=== PATIENT | male | born 1995 | race Caucasian/White ===

== ENCOUNTER 2019-12-28 21:53 | Emergency (ER) | payer BC ==
[~2019-12-28] VITALS: Ht 172.7 cm; Wt 97.5 kg
[2019-12-28 21:54] VITALS: Ht 172.7 cm; Wt 97.5 kg
[2019-12-28 23:46] VITALS: BP 116/74
== END 2019-12-28 23:46 | disposition home or self-care (01) ==
LOC: ED 21:53
DX: J06.9 Acute upper respiratory infection, unspecified (principal)
CPT/HCPCS: 87804; Q0092; U0002